=== PATIENT | female | born 1985 | race Caucasian/White ===

== ENCOUNTER 2019-01-19 15:29 | Inpatient (IN) | payer OTHER ==
[~2019-01-19 15:29] MED LIST: PHENYLephrine (100 MCG/ML) 5ML SYG
[2019-01-19] MEDS ORDERED: CARBOPROST 250 MCG INJ IM (20:30)
[2019-01-19] MEDS ORDERED: CEFAZOLIN 2 GM/50 ML (PMX) 50 ML IVPB (20:30)
[2019-01-19] MEDS ORDERED: METHYLERGONOVINE 0.2 MG INJ IM (20:30)
[2019-01-19] MEDS ORDERED: AMPICILLIN 2 GM/NS (PMX) 100 ML IV (20:30)
[2019-01-19] MEDS ORDERED: MISOPROSTOL 200 MCG TAB PR (20:30)
[2019-01-19] MEDS ORDERED: OXYTOCIN 30 UNITS/LR 500 ML IV ×3 (20:30→22:39)
[2019-01-19 20:33] LABS: ADD MAN DIFF? NO
[2019-01-19 20:34] LABS: ADD UMIC YES; UR ASCORBIC ACID NEGATIVE (NEGATIVE); UR BILIRUBIN (Dip) NEGATIVE (NEGATIVE); UR BLOOD (Dip) 3+ mg/dL (NEGATIVE); UR CLARITY SLIGHTLY CLOUDY (CLEAR); UR COLOR STRAW (YELLOW); UR GLUCOSE (Dip) NEGATIVE (NEGATIVE); UR KETONES (Dip) TRACE mg/dL (NEGATIVE); UR LEUKOCYTE ESTERASE (Dip) NEGATIVE Leu/ul (NEGATIVE); UR NITRITE (Dip) NEGATIVE (NEGATIVE); UR RBC 0 /HPF (0-5); UR SPECIFIC GRAVITY (Dip) 1.003 (1.003-1.030); UR SQUAMOUS EPITHELIAL CELL MODERATE /HPF (FEW); UR TOTAL PROTEIN (Dip) NEGATIVE (NEGATIVE); UR UROBILINOGEN (Dip) NEGATIVE (NEGATIVE); UR WBC 2 /HPF (0-5)
[2019-01-19 20:38] LABS: WHITE BLOOD COUNT 9.5 10^3/ul (4.8-10.8)
[2019-01-19 20:38] LABS: BASOPHILS % 0.2 % (0.0-2.0); EOSINOPHILS % 0.2 % (0.0-7.0); HEMATOCRIT 30.4 % (37.0-47.0); HEMOGLOBIN 9.5 g/dl (12.0-16.0); LYMPHOCYTES # 2.3 10^3/ul (0.8-2.9); LYMPHOCYTES % 24.6 % (15.0-51.0); MEAN CORPUSCULAR HEMOGLOBIN 24.7 pg (29.0-33.0); MEAN CORPUSCULAR HGB CONC 31.3 g/dl (32.0-37.0); MEAN CORPUSCULAR VOLUME 79.2 fl (82.0-101.0); MEAN PLATELET VOLUME 10.2 fl (7.4-10.4); MONOCYTE # 0.6 10^3/ul (0.3-0.9); MONOCYTES % 6.1 % (0.0-11.0); NEUTROPHIL # 6.5 10^3/ul (1.6-7.5); NEUTROPHILS % 68.6 % (39.0-77.0); PLATELET COUNT 306 10^3/UL (140-415); RED BLOOD COUNT 3.84 10^6/ul (4.20-5.40); RED CELL DISTRIBUTION WIDTH 14.7 % (11.5-14.5)
[2019-01-19] MEDS: LACTATED RINGER'S 1,000 ML IV (20:45)
[2019-01-19 20:55] LABS: AMPHETAMINE/METHAMPHETAMINE Negative (NEGATIVE); BARBITURATES Negative (NEGATIVE); BENZODIAZEPINES Negative (NEGATIVE); CANNABINOIDS Negative (NEGATIVE); COCAINE Negative (NEGATIVE); OPIATES Negative (NEGATIVE)
[2019-01-19] MEDS: CITRIC ACID/NA CITRATE 30 ML CUP PO (21:12)
[2019-01-19] MEDS ORDERED: morphine SULFATE/PF (10 MG/10 ML) INJ (21:31)
[2019-01-19] MEDS ORDERED: METOCLOPRAMIDE 10 MG INJ (21:31)
[2019-01-19] MEDS ORDERED: ONDANSETRON 4 MG INJ (21:31)
[2019-01-19] MEDS ORDERED: KETOROLAC 30 MG INJ (21:31)
[2019-01-19] MEDS ORDERED: BUPIVACAINE 0.75%/DEXT (SPINAL) 2 ML INJ (21:34)
[2019-01-19 21:44] LABS: HEPATITIS B SURFACE ANTIGEN NEGATIVE (NEGATIVE)
[2019-01-19 21:47] LABS: INR 0.93; PARTIAL THROMBOPLASTIN TIME 24.1 Sec (23.0-35.0); PROTIME 12.6 Sec (11.9-14.9)
[2019-01-19 23:02] LABS: HIV 1&2 ANTIBODY NEGATIVE (NEGATIVE)
[2019-01-20] MEDS ORDERED: NALOXONE (0.4 MG/ML) INJ IV ×2 (01:00→08:30)
[2019-01-20] MEDS ORDERED: DIPHENHYDRAMINE 50 MG INJ IV ×2 (01:00)
[2019-01-20] MEDS ORDERED: morphine 2 MG INJ IV ×6 (01:00→08:30)
[2019-01-20] MEDS ORDERED: morphine (1 MG/ML) 10ML SYRINGE IV ×3 (01:00)
[2019-01-20] MEDS ORDERED: ONDANSETRON 4 MG INJ IV ×2 (01:00)
[2019-01-20] MEDS ORDERED: KETOROLAC 30 MG INJ IV ×2 (01:00)
[2019-01-20] MEDS ORDERED: METHYLERGONOVINE 0.2 MG INJ IM (02:00)
[2019-01-20] MEDS ORDERED: MISOPROSTOL 200 MCG TAB PR (02:00)
[2019-01-20] MEDS ORDERED: METHYLERGONOVINE 0.2 MG TAB PO (02:00)
[2019-01-20] MEDS ORDERED: CARBOPROST 250 MCG INJ IM (02:00)
[2019-01-20] MEDS ORDERED: OXYTOCIN 30 UNITS/LR 500 ML IV (02:00)
[2019-01-20] MEDS: OXYTOCIN 30 UNITS/LR 500 ML IV (03:23)
[2019-01-20 08:48] LABS: ADD MAN DIFF? NO
[2019-01-20 08:56] LABS: BASOPHILS % 0.2 % (0.0-2.0); EOSINOPHILS % 0.2 % (0.0-7.0); HEMATOCRIT 29.9 % (37.0-47.0); HEMOGLOBIN 9.2 g/dl (12.0-16.0); LYMPHOCYTES # 1.7 10^3/ul (0.8-2.9); LYMPHOCYTES % 14.8 % (15.0-51.0); MEAN CORPUSCULAR HEMOGLOBIN 24.5 pg (29.0-33.0); MEAN CORPUSCULAR HGB CONC 30.8 g/dl (32.0-37.0); MEAN CORPUSCULAR VOLUME 79.7 fl (82.0-101.0); MEAN PLATELET VOLUME 10.4 fl (7.4-10.4); MONOCYTE # 0.7 10^3/ul (0.3-0.9); MONOCYTES % 5.7 % (0.0-11.0); NEUTROPHIL # 9.1 10^3/ul (1.6-7.5); NEUTROPHILS % 78.4 % (39.0-77.0); PLATELET COUNT 285 10^3/UL (140-415); RED BLOOD COUNT 3.75 10^6/ul (4.20-5.40); RED CELL DISTRIBUTION WIDTH 14.3 % (11.5-14.5)
[2019-01-20 08:56] LABS: WHITE BLOOD COUNT 11.7 10^3/ul (4.8-10.8)
[2019-01-20] MEDS: SENNA/DOCUSATE NA (8.6MG/50MG) TAB PO ×2 (09:00→21:08)
[2019-01-20] MEDS: DEXTROSE 5%-LR 1,000 ML IV ×3 (09:55→17:55)
[2019-01-20] MEDS: LANOLIN HPA 1 PKT TOP (10:45)
[2019-01-20 16:21] LABS: RAPID PLASMA REAGIN NONREACTIVE (NR)
[2019-01-20] MEDS: KETOROLAC 30 MG INJ IV (17:00)
[2019-01-21] MEDS ORDERED: HYDROCODONE/APAP (5/325) TAB PO ×3 (01:36→14:00)
[2019-01-21] MEDS: HYDROCODONE/APAP (5/325) TAB PO ×3 (01:41→17:16)
[2019-01-21] MEDS: DEXTROSE 5%-LR 1,000 ML IV ×3 (01:55→17:55)
[2019-01-21] MEDS: IBUPROFEN 800 MG TAB PO ×3 (05:36→21:46)
[2019-01-21] MEDS ORDERED: FERROUS GLUCONATE (EC) 325 MG TAB PO (09:00)
[2019-01-21] MEDS: SENNA/DOCUSATE NA (8.6MG/50MG) TAB PO ×2 (09:21→21:08)
[2019-01-21] MEDS: FERROUS GLUCONATE (EC) 325 MG TAB PO (12:51)
[2019-01-21] MEDS: DIPHTH/TET/ACEL PERTUSS (ADULT) 0.5 ML VIAL IM* (16:22)
[2019-01-21] MEDS: LANOLIN HPA 1 PKT TOP (21:08)
[2019-01-22] MEDS: HYDROCODONE/APAP (5/325) TAB PO ×2 (01:28→10:57)
[2019-01-22] MEDS: DEXTROSE 5%-LR 1,000 ML IV (01:55)
[2019-01-22] MEDS: IBUPROFEN 800 MG TAB PO ×2 (05:54→14:00)
[2019-01-22] MEDS: SENNA/DOCUSATE NA (8.6MG/50MG) TAB PO (08:49)
[2019-01-22] MEDS: FERROUS GLUCONATE (EC) 325 MG TAB PO (08:49)
[2019-01-23] MEDS ORDERED: MEASLES,MUMPS,RUBELLA VACCINE INJ SC* (09:00)
[2019-01-23] MEDS ORDERED: DIPHTH/TET/ACEL PERTUSS (ADULT) 0.5 ML VIAL IM* (09:00)
[2019-01-23 12:31] LABS: RUBELLA ANTIBODY - IGG 4.21 index; RUBELLA ANTIBODY - IGM <20.00 AU/mL
== END 2019-01-22 15:40 | disposition home or self-care (01) | DRG 788 ==
LOC: OBT 15:29 → MS1 01-20 02:28 → L-D 15:29 → PP1 01-20 22:00 → OBT 19:50 → L-D 19:50
PROC: 10D00Z1 Extraction of Products of Conception, Low, Open Approach (ICD-10-PCS; principal; 2019-01-19)
DX: O34.219 Maternal care for unspecified type scar from previous cesarean delivery (principal); O94 Sequelae of complication of pregnancy, childbirth, and the puerperium; Z3A.37 37 weeks gestation of pregnancy; Z37.0 Single live birth; Z23 Encounter for immunization
CPT/HCPCS: 76815; 76818; 80307; 81001; 85025; 85610; 85730; 86592; 86703; 86762; 86850; 86900; 86901; 87340; 90686; 90715; 96360; 99464